=== PATIENT | female | born 1995 | race Hispanic/Latino ===

== ENCOUNTER 2017-10-10 17:05 | Emergency (ER) | payer BC, OTHER ==
[2017-10-10] MEDS ORDERED: Bacitracin Zinc 1 Packet ONE (18:10)
[2017-10-10] MEDS ORDERED: Adacel (T-DAP) 0.5 ML VIAL ONE (18:14)
[2017-10-10] MEDS ORDERED: Ketorolac Tromethamine 30 MG/ML VIAL ONE (18:14)
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
--- NOTE | 2017-10-10 20:41 | RAD ---
LEFT LEG TWO VIEWS 10/10/17 The tibia and fibula appear intact. No acute bony findings were encountered. There does not appear to be any joint effusion at the knee. IMPRESSION: No acute finding. POS: HOME
== END 2017-10-10 20:02 | disposition home or self-care (01) ==
LOC: BURERS 17:05
DX: S80.12XA Contusion of left lower leg, initial encounter (principal); S00.83XA Contusion of other part of head, initial encounter; S70.312A Abrasion, left thigh, initial encounter; V89.2XXA Person injured in unspecified motor-vehicle accident, traffic, initial encounter
CPT/HCPCS: 70450; 72125; 90471; 90715; 96374; G0390; J1885